=== PATIENT | female | born 1985 | race Caucasian/White ===

== ENCOUNTER 2023-07-17 18:34 | Outpatient (CLI) | payer OTHER ==
[2023-07-17 22:44] LABS: BACTERIAL VAGINOSIS DNA NEGATIVE (NEGATIVE); CANDIDA GLABRATA DNA NEGATIVE (NEGATIVE); CANDIDA GROUP DNA NEGATIVE (NEGATIVE); CANDIDA KRUSEI DNA NEGATIVE (NEGATIVE); TRICHOMONAS VAGINALIS DNA NEGATIVE (NEGATIVE)
[2023-07-17 23:55] LABS: CHLAMYDIA TRACHOMATIS DNA NEGATIVE (NEGATIVE); NEISSERIA GONORRHOEAE DNA NEGATIVE (NEGATIVE)
== END 2023-07-17 18:36 | disposition home or self-care (01) ==
LOC: LAB.N 18:34
PROVIDERS: ATTEND Family Medicine
DX: R30.0 Dysuria (principal)
CPT/HCPCS: 81514; 87086; 87491; 87591; 87661